=== PATIENT | male | born 1980 | race Two or more races ===

== ENCOUNTER 2018-07-01 12:01 | Emergency (ER) | payer OTHER ==
[~2018-07-01] VITALS: Ht 167.6 cm; Wt 77.1 kg
[2018-07-01 12:51] VITALS: BP 123/72
== END 2018-07-01 14:32 | disposition home or self-care (01) ==
LOC: ER 12:04
DX: R21 Rash and other nonspecific skin eruption (principal); J45.909 Unspecified asthma, uncomplicated; Z76.0 Encounter for issue of repeat prescription

== ENCOUNTER 2022-03-06 13:35 | Emergency (ER) | payer SELFPAY ==
[~2022-03-06] VITALS: Ht 170.2 cm; Wt 77.1 kg
[2022-03-06 14:23] VITALS: BP 137/93
[2022-03-06] MEDS ORDERED: AZIT1POW PO (15:23)
== END 2022-03-06 15:53 | disposition home or self-care (01) ==
LOC: ER 13:35
DX: J02.9 Acute pharyngitis, unspecified (principal); F17.210 Nicotine dependence, cigarettes, uncomplicated

== ENCOUNTER 2023-10-29 12:24 | Emergency (ER) | payer MEDICAID, OTHER ==
[~2023-10-29] VITALS: Ht 170.2 cm; Wt 88.7 kg
[~2023-10-29 12:24] MED LIST: AZIT1POW PO
[2023-10-29 13:21] VITALS: BP 132/78; PULSE 91; RESP 18; TEMP 99.1; O2SAT 98
[2023-10-29 15:04] LABS: Chloride 109 mmol/L (98-107); Potassium 4.4 mmol/L (3.5-5.1); Sodium 138 mmol/L (136-145)
[2023-10-29 15:05] LABS: Anion Gap 2 (5-15); Calcium 8.7 mg/dL (8.7-10.4); Carbon Dioxide 27 mmol/L (20-30)
[2023-10-29 15:10] LABS: BUN/Creatinine Ratio 14.9 (10.0-20.0); Blood Urea Nitrogen 13 mg/dL (9-23); Glucose 87 mg/dL (74-106)
[2023-10-29] MEDS ORDERED: ASPI1TAB20 PO (15:30)
== END 2023-10-29 15:37 | disposition home or self-care (01) ==
LOC: ER 12:24
DX: M79.18 Myalgia, other site (principal); R22.43 Localized swelling, mass and lump, lower limb, bilateral; F17.210 Nicotine dependence, cigarettes, uncomplicated
CPT/HCPCS: 36415; 80048